=== PATIENT | male | born 1960 | race Caucasian/White ===

== ENCOUNTER 2022-11-13 01:33 | Inpatient (IN) ==
[2022-11-13] MEDS ORDERED: Rocuronium 50 mg VIAL 10 mg/ml 5 ml VIAL (50 mg) ONE ×3 (10:50→11:07)
[2022-11-13 10:55] LABS: Hematocrit 39 % (42-52); Hemoglobin 13.5 g/dL (14.0-18.0); Mean Corpuscular Hemoglobin 36 pg (27-31); Mean Corpuscular Hgb Conc 34 g/dL (31-36); Mean Corpuscular Volume 105 fL (80-94); Mean Platelet Volume 8.5 fL (7.4-10.4); Platelet Count 196 10^3/uL (150-450); Red Blood Count 3.77 10^6 /uL (4.18-5.48); Red Cell Distribution Width 14 % (10-15); White Blood Count 10.1 10^3/uL (3.5-10.8)
[2022-11-13 11:04] LABS: INR 1.14 (0.88-1.18)
[2022-11-13] MEDS ORDERED: Etomidate 40 mg/20 ml (2 MG/ML) 20 ml VIAL (40 mg) ONE (11:07)
[2022-11-13] MEDS ORDERED: Propofol 10 mg/ml 100 ML BTL 1,000 MG/100 ML BTL ONE (11:11)
[2022-11-13] MEDS ORDERED: Lorazepam PYXIS KEY PRN (11:27)
[2022-11-13] MEDS ORDERED: Lorazepam PYXIS KEY ONE (11:40)
[2022-11-13 11:41] LABS: ALT 339 U/L (7-52); AST 946 U/L (13-39); Albumin 3.1 g/dL (3.2-5.2); Albumin/Globulin Ratio 1.1 (1-3); Alkaline Phosphatase 65 U/L (35-149); Anion Gap 15 mmol/L (2-11); Blood Urea Nitrogen 58 mg/dL (6-24); CO2 Carbon Dioxide 19 mmol/L (22-32); Calcium 7.3 mg/dL (8.6-10.3); Chloride 104 mmol/L (101-111); Creatinine, Serum 3.73 mg/dL (0.67-1.17); Globulin 2.8 g/dL (2-4); Glucose 93 mg/dL (70-100); Phosphorus 6.8 mg/dL (2.5-5.0); Sodium 138 mmol/L (135-145); Total Protein 5.9 g/dL (6.4-8.9); eGFR CKD-EPI 17.6 (>60)
[2022-11-13] MEDS ORDERED: LORazepam 2 mg VIAL 1 ml ONE (11:41)
[2022-11-13] MEDS: LORazepam 2 mg VIAL 1 ml IV PUSH PRN (11:42)
[2022-11-13] MEDS: Midazolam 50 MG PREMIX IV DRIP 50 ML IV SCH (11:55)
[2022-11-13] MEDS ORDERED: Dexmedetomidine 1,000 MCG in NS 0.9% 250 ml 240 ML IV SCH (12:00)
[2022-11-13] MEDS ORDERED: NORMOSOL-R pH 7.4 1000 mL BAG 1,000 ML IV SCH (12:00)
[2022-11-13 12:06] LABS: Macrocytosis 1+; Polychromasia 1+
[2022-11-13 12:13] LABS: ABS Lymphocytes 0.4 10^3/ul (1.0-4.8); ABS Monocytes 1.6 10^3/ul (0-0.8); ABS Neutrophils 8.1 10^3/ul (1.5-7.7); Lymphocyte % 3.6 %
[2022-11-13 12:22] LABS: PCO2 Arterial 54 mmHg (35-45); PO2 Arterial 161 mmHg (80-100)
[2022-11-13 12:44] LABS: Urine Appearance Cloudy; Urine Bilirubin Negative (Negative); Urine Blood 3+ (Negative); Urine Color Yellow; Urine Glucose 1+(50 mg/dL) (Negative); Urine Ketones Negative (Negative); Urine Nitrite Negative (Negative); Urine Protein 2+(100 mg/dL) (Negative); Urine Specific Gravity 1.013 (1.002-1.030); Urine Urobilinogen Negative (Negative)
[2022-11-13 12:56] LABS: Urine Bacteria Absent (Absent); Urine Red Blood Cell 3+(>10/hpf) (Absent); Urine White Blood Cell 2+(11-20/hpf) (Absent)
[2022-11-13 13:03] LABS: Urine Benzodiazepine Screen Presumptive Positive (None Detect); Urine Buprenorphine Screen None Detected (None Detect); Urine Cannabinoids Screen None Detected (None Detect); Urine Fentanyl Screen None Detected (None Detect); Urine Hydrocodone Screen None Detected (None Detect); Urine Opiates Screen None Detected (None Detect)
[2022-11-13 13:29] LABS: C Reactive Protein 575.55 mg/L (<8.01)
[2022-11-13 13:53] LABS: Creatine Kinase 78486 U/L (10-223)
[2022-11-13] MEDS ORDERED: Thiamine 100 MG/ML 2 ml VIAL (200 mg) IM ONE (15:06)
[2022-11-13 16:06] LABS: Albumin 3.1 g/dL (3.2-5.2); Albumin/Globulin Ratio 1.2 (1-3); Calcium 7.3 mg/dL (8.6-10.3); Creatinine, Serum 4.22 mg/dL (0.67-1.17); Globulin 2.6 g/dL (2-4); Total Bilirubin 0.7 mg/dL (0.2-1.0); Total Protein 5.7 g/dL (6.4-8.9); eGFR CKD-EPI 15.2 (>60)
[2022-11-13 16:07] LABS: Potassium 5.9 mmol/L (3.5-5.0)
[2022-11-13] MEDS: Chlorhexidine MOUTHWASH 0.12% 15 ML UDC TOPICAL SCH ×3 (16:07→23:04)
[2022-11-13] MEDS: Pantoprazole VIAL 40 MG VIAL IV SCH (16:07)
[2022-11-13 16:18] LABS: Hepatitis B Surface Antigen Nonreactive (Nonreactive)
[2022-11-13 16:23] LABS: Hepatitis B Core IgM Nonreactive (Nonreactive)
[2022-11-13] MEDS ORDERED: Dextrose 50% Syringe 50 ml 25 GM/50 ML SYRINGE IV PUSH PRN (16:29)
[2022-11-13] MEDS ORDERED: Dextrose 50% Syringe 50 ml 25 GM/50 ML SYRINGE IV PUSH ONE (16:29)
[2022-11-13 16:35] LABS: Hepatitis B Surface Ab Not Immune (Immune); Hepatitis C Antibody Negative (Negative)
[2022-11-13] MEDS ORDERED: Sodium Polystyrene ORAL.SUSP 15 GM/60 ML BTL NG TUBE ONE (16:43)
[2022-11-13] MEDS ORDERED: Thiamine 100 MG/ML 2 ml VIAL 250 MG in NS 0.9% 100 ml BAG 100 ML IV SCH (17:00)
[2022-11-13 17:48] LABS: Salicylate < 2.50 mg/dL (<30)
[2022-11-13 18:32] LABS: Creatinine, Serum 4.52 mg/dL (0.67-1.17)
[2022-11-13 18:33] LABS: Potassium 5.3 mmol/L (3.5-5.0)
[2022-11-13] MEDS: Heparin 1,000 UNIT/ML 10 ml (10,000 UNITS) CATHLAB/DIALYSIS DIALYSIS PRN ×5 (19:50→23:51)
[2022-11-13] MEDS ORDERED: Midazolam 2 mg/2 ml VIAL 1 mg/ml 2 ml VIAL (2 mg) IV SLOW PU ONE (22:52)
[2022-11-13] MEDS ORDERED: Midazolam 2 mg/2 ml VIAL 1 mg/ml 2 ml VIAL (2 mg) ONE (22:56)
[2022-11-13] MEDS ORDERED: Norepinephrine 16MCG/ML BAGD5W 4,000 MCG/250 ML BAG IV SCH (23:00)
[2022-11-13] MEDS: Acetaminophen IV 1 GM/100ML 1,000 MG/100 ML BAG IV PRN (23:33)
[2022-11-14] MEDS ORDERED: Piperacillin/Tazobac ADVAN 3.375 GM in NS 0.9% 100 ml BAG 100 ML IV ONE (00:08)
[2022-11-14 00:21] LABS: PCO2 Arterial 30 mmHg (35-45); PO2 Arterial 385 mmHg (80-100)
[2022-11-14] MEDS: Midazolam 50 MG PREMIX IV DRIP 50 ML IV SCH ×4 (00:37→20:40)
[2022-11-14] MEDS ORDERED: Zosyn per Pharmacy NOTE FOLLOW UP SCH (01:00)
[2022-11-14] MEDS ORDERED: DOXYcycline 100 MG in NS 0.9% 250 ml 250 ML IVPB SCH (01:00)
[2022-11-14] MEDS: Chlorhexidine MOUTHWASH 0.12% 15 ML UDC TOPICAL SCH ×6 (01:00→20:26)
[2022-11-14 01:48] LABS: Hematocrit 38 % (42-52); Hemoglobin 13.1 g/dL (14.0-18.0); Mean Corpuscular Hemoglobin 36 pg (27-31); Mean Corpuscular Hgb Conc 34 g/dL (31-36); Mean Corpuscular Volume 105 fL (80-94); Mean Platelet Volume 8.5 fL (7.4-10.4); Platelet Count 198 10^3/uL (150-450); Red Blood Count 3.65 10^6 /uL (4.18-5.48); Red Cell Distribution Width 14 % (10-15); White Blood Count 14.3 10^3/uL (3.5-10.8)
[2022-11-14 02:41] LABS: Albumin/Globulin Ratio 1.2 (1-3); Calcium 7.5 mg/dL (8.6-10.3); Creatinine, Serum 3.13 mg/dL (0.67-1.17); Globulin 2.6 g/dL (2-4); Magnesium 2.2 mg/dL (1.9-2.7); Potassium 4.1 mmol/L (3.5-5.0); Total Bilirubin 1.5 mg/dL (0.2-1.0); Total Protein 5.6 g/dL (6.4-8.9); eGFR CKD-EPI 21.8 (>60)
[2022-11-14] MEDS ORDERED: ZOSYN 3.375 GM Q12H per EXTENDED INFUSION IV SCH (05:00)
[2022-11-14 05:10] LABS: Hematocrit 36 % (42-52); Hemoglobin 12.2 g/dL (14.0-18.0); Mean Corpuscular Hemoglobin 35 pg (27-31); Mean Corpuscular Hgb Conc 34 g/dL (31-36); Mean Corpuscular Volume 104 fL (80-94); Mean Platelet Volume 8.6 fL (7.4-10.4); Platelet Count 197 10^3/uL (150-450); Red Blood Count 3.47 10^6 /uL (4.18-5.48); Red Cell Distribution Width 14 % (10-15); White Blood Count 11.8 10^3/uL (3.5-10.8)
[2022-11-14 05:48] LABS: Albumin 2.9 g/dL (3.2-5.2); Albumin/Globulin Ratio 1.2 (1-3); Calcium 7.4 mg/dL (8.6-10.3); Creatinine, Serum 3.54 mg/dL (0.67-1.17); Globulin 2.4 g/dL (2-4); Potassium 4.3 mmol/L (3.5-5.0); Total Bilirubin 1.1 mg/dL (0.2-1.0); Total Protein 5.3 g/dL (6.4-8.9); eGFR CKD-EPI 18.8 (>60)
[2022-11-14 06:23] LABS: ABS Lymphocytes 0.8 10^3/ul (1.0-4.8); ABS Monocytes 1.9 10^3/ul (0-0.8); ABS Neutrophils 9.1 10^3/ul (1.5-7.7); Eosinophil % 0.1 %; Lymphocyte % 6.6 %
[2022-11-14] MEDS: Heparin 1,000 UNIT/ML 10 ml (10,000 UNITS) CATHLAB/DIALYSIS DIALYSIS PRN ×4 (07:50→11:15)
[2022-11-14] MEDS ORDERED: Vancomycin 1,500 MG in NS 0.9% 250 ml 250 ML IVPB ONE (08:00)
[2022-11-14] MEDS ORDERED: Vancomycin per Pharmacy 1 EA NOTE FOLLOW UP SCH (08:00)
[2022-11-14] MEDS: Thiamine 100 MG/ML 2 ml VIAL 500 MG in NS 0.9% 250 ml 250 ML IV SCH ×2 (11:16→18:30)
[2022-11-14] MEDS: ceFAZolin 1 GM in Dextrose 1 GM/50 ML BAG IVPB SCH (11:52)
[2022-11-14] MEDS: DOXYcycline 100 MG in NS 0.9% 250 ml 250 ML IVPB SCH (12:31)
[2022-11-14] MEDS: Pantoprazole VIAL 40 MG VIAL IV SCH (12:37)
[2022-11-14] MEDS: Multivitamins/Minerals TAB PO SCH (12:41)
[2022-11-14] MEDS ORDERED: Dexmedetomidine 1,000 MCG in NS 0.9% 250 ml 240 ML IV SCH (13:00)
[2022-11-14 13:15] LABS: Calcium 7.8 mg/dL (8.6-10.3); Creatinine, Serum 2.59 mg/dL (0.67-1.17); Potassium 3.8 mmol/L (3.5-5.0); eGFR CKD-EPI 27.3 (>60)
[2022-11-14] MEDS ORDERED: Midazolam 5 mg/5 ml VIAL 1 mg/ml 5 ml VIAL (5 mg) ONE (14:18)
[2022-11-14] MEDS ORDERED: Naloxone 0.4 mg VIAL 0.4 mg/ml 1 ml VIAL ONE (14:19)
[2022-11-14] MEDS ORDERED: Flumazenil 0.5 mg/5 ml 0.1 MG/ML 5 ml VIAL ONE (14:19)
[2022-11-14] MEDS ORDERED: fentaNYL 100 mcg/2 ml 50 MCG/ML VIAL ONE (14:19)
[2022-11-14] MEDS: Acetaminophen IV 1 GM/100ML 1,000 MG/100 ML BAG IV PRN (22:37)
[2022-11-15] MEDS: DOXYcycline 100 MG in NS 0.9% 250 ml 250 ML IVPB SCH ×2 (00:05→12:12)
[2022-11-15] MEDS: Thiamine 100 MG/ML 2 ml VIAL 500 MG in NS 0.9% 250 ml 250 ML IV SCH ×3 (00:09→16:53)
[2022-11-15] MEDS: Chlorhexidine MOUTHWASH 0.12% 15 ML UDC TOPICAL SCH ×6 (02:04→22:47)
[2022-11-15 04:24] LABS: Hematocrit 32 % (42-52); Hemoglobin 10.8 g/dL (14.0-18.0); Mean Corpuscular Hemoglobin 35 pg (27-31); Mean Corpuscular Hgb Conc 34 g/dL (31-36); Mean Corpuscular Volume 103 fL (80-94); Mean Platelet Volume 8.9 fL (7.4-10.4); Platelet Count 221 10^3/uL (150-450); Red Blood Count 3.08 10^6 /uL (4.18-5.48); Red Cell Distribution Width 14 % (10-15); White Blood Count 17.6 10^3/uL (3.5-10.8)
[2022-11-15 04:27] LABS: ABS Basophils 0.1 10^3/ul (0-0.2); ABS Lymphocytes 0.9 10^3/ul (1.0-4.8); ABS Monocytes 2.1 10^3/ul (0-0.8); ABS Neutrophils 14.7 10^3/ul (1.5-7.7); Eosinophil % 0.1 %; Lymphocyte % 4.8 %
[2022-11-15 04:29] LABS: INR 1.18 (0.88-1.18)
[2022-11-15 04:49] LABS: ALT 163 U/L (7-52); AST 151 U/L (13-39); Albumin 2.4 g/dL (3.2-5.2); Albumin/Globulin Ratio 0.9 (1-3); Alkaline Phosphatase 83 U/L (35-149); Anion Gap 13 mmol/L (2-11); Blood Urea Nitrogen 58 mg/dL (6-24); CO2 Carbon Dioxide 24 mmol/L (22-32); Calcium 7.3 mg/dL (8.6-10.3); Chloride 102 mmol/L (101-111); Creatinine, Serum 4.51 mg/dL (0.67-1.17); Globulin 2.6 g/dL (2-4); Glucose 105 mg/dL (70-100); Potassium 3.9 mmol/L (3.5-5.0); Sodium 139 mmol/L (135-145)
[2022-11-15] MEDS: Multivitamins/Minerals TAB PO SCH (08:12)
[2022-11-15] MEDS: ceFAZolin 1 GM in Dextrose 1 GM/50 ML BAG IVPB SCH (11:25)
[2022-11-15 12:02] LABS: Cholesterol 128 mg/dL; HDL Cholesterol 5.6 mg/dL; Triglycerides 427 mg/dL
[2022-11-15] MEDS: Pantoprazole VIAL 40 MG VIAL IV SCH (12:12)
[2022-11-15 12:19] LABS: LDL Cholesterol Direct 12 mg/dL
[2022-11-15] MEDS: Acetaminophen IV 1 GM/100ML 1,000 MG/100 ML BAG IV PRN (15:39)
[2022-11-15 16:33] LABS: Vitamin B12 > 1450 pg/mL (180-914)
[2022-11-16] MEDS: DOXYcycline 100 MG in NS 0.9% 250 ml 250 ML IVPB SCH ×2 (00:40→12:38)
[2022-11-16] MEDS: Pantoprazole VIAL 40 MG VIAL IV SCH ×2 (00:43→13:55)
[2022-11-16] MEDS: Chlorhexidine MOUTHWASH 0.12% 15 ML UDC TOPICAL SCH ×6 (00:43→20:36)
[2022-11-16] MEDS: Thiamine 100 MG/ML 2 ml VIAL 500 MG in NS 0.9% 250 ml 250 ML IV SCH ×3 (01:39→17:07)
[2022-11-16 04:56] LABS: Hematocrit 32 % (42-52); Hemoglobin 10.7 g/dL (14.0-18.0); Mean Corpuscular Hemoglobin 34 pg (27-31); Mean Corpuscular Hgb Conc 33 g/dL (31-36); Mean Corpuscular Volume 103 fL (80-94); Mean Platelet Volume 8.7 fL (7.4-10.4); Platelet Count 264 10^3/uL (150-450); Red Blood Count 3.13 10^6 /uL (4.18-5.48); Red Cell Distribution Width 14 % (10-15)
[2022-11-16 05:22] LABS: ABS Basophils 0.1 10^3/ul (0-0.2); ABS Lymphocytes 0.8 10^3/ul (1.0-4.8); ABS Monocytes 1.7 10^3/ul (0-0.8); ABS Neutrophils 19.3 10^3/ul (1.5-7.7); Eosinophil % 0.1 %; Lymphocyte % 3.8 %; Macrocytosis 1+
[2022-11-16 05:23] LABS: Polychromasia 1+
[2022-11-16 05:38] LABS: Calcium 7.7 mg/dL (8.6-10.3); Creatinine, Serum 6.63 mg/dL (0.67-1.17); Magnesium 2.3 mg/dL (1.9-2.7); eGFR CKD-EPI 8.8 (>60)
[2022-11-16 07:59] LABS: C Reactive Protein 320.63 mg/L (<8.01)
[2022-11-16] MEDS: Multivitamins/Minerals TAB PO SCH (08:38)
[2022-11-16] MEDS: ceFAZolin 1 GM in Dextrose 1 GM/50 ML BAG IVPB SCH (11:53)
[2022-11-16] MEDS: Heparin 5000 UNITS/ML 1 mL VIAL SUBCUT SCH (19:35)
[2022-11-16 22:23] LABS: PCO2 Arterial 21 mmHg (35-45); PO2 Arterial 75 mmHg (80-100)
[2022-11-16] MEDS ORDERED: Mineral Oil ENEMA 118 ML/BOTTLE BOTTLE PR ONE (22:24)
[2022-11-17] MEDS ORDERED: Metoprolol Tartrate 5 mg VIAL 5 ml VIAL (1 mg/ml) IV ONE (00:13)
[2022-11-17] MEDS: DOXYcycline 100 MG in NS 0.9% 250 ml 250 ML IVPB SCH (00:37)
[2022-11-17] MEDS: Chlorhexidine MOUTHWASH 0.12% 15 ML UDC TOPICAL SCH ×6 (00:37→21:55)
[2022-11-17] MEDS: Acetaminophen IV 1 GM/100ML 1,000 MG/100 ML BAG IV PRN ×2 (00:45→19:56)
[2022-11-17] MEDS: Pantoprazole VIAL 40 MG VIAL IV SCH ×2 (01:02→13:59)
[2022-11-17] MEDS: LORazepam 2 mg VIAL 1 ml IV PUSH PRN (01:02)
[2022-11-17] MEDS: Metoclopramide 5 MG/ML VIAL (10 mg) IV SLOW PU SCH ×4 (01:09→16:59)
[2022-11-17] MEDS: Thiamine 100 MG/ML 2 ml VIAL 500 MG in NS 0.9% 250 ml 250 ML IV SCH (01:10)
[2022-11-17 04:18] LABS: Hematocrit 30 % (42-52); Hemoglobin 10.2 g/dL (14.0-18.0); Mean Corpuscular Hemoglobin 34 pg (27-31); Mean Corpuscular Hgb Conc 34 g/dL (31-36); Mean Corpuscular Volume 100 fL (80-94); Mean Platelet Volume 8.6 fL (7.4-10.4); Platelet Count 304 10^3/uL (150-450); Red Blood Count 2.96 10^6 /uL (4.18-5.48); Red Cell Distribution Width 14 % (10-15); White Blood Count 22.2 10^3/uL (3.5-10.8)
[2022-11-17 04:37] LABS: ABS Lymphocytes 1.1 10^3/ul (1.0-4.8); ABS Monocytes 2.4 10^3/ul (0-0.8); ABS Neutrophils 18.6 10^3/ul (1.5-7.7); Eosinophil % 0.1 %; Nucleated Red Blood Cells % 0.1
[2022-11-17 04:53] LABS: Calcium 7.7 mg/dL (8.6-10.3); Creatinine, Serum 8.19 mg/dL (0.67-1.17); Magnesium 2.6 mg/dL (1.9-2.7); Potassium 3.9 mmol/L (3.5-5.0); eGFR CKD-EPI 6.9 (>60)
[2022-11-17] MEDS: Heparin 5000 UNITS/ML 1 mL VIAL SUBCUT SCH ×3 (04:54→21:55)
[2022-11-17] MEDS ORDERED: Norepinephrine 16MCG/ML BAGD5W 4,000 MCG/250 ML BAG IV SCH (09:00)
[2022-11-17] MEDS: Heparin 1,000 UNIT/ML 10 ml (10,000 UNITS) CATHLAB/DIALYSIS DIALYSIS PRN ×3 (09:14→11:10)
[2022-11-17] MEDS ORDERED: fentaNYL 100 mcg/2 ml 50 MCG/ML VIAL IV SLOW PU ONE (11:05)
[2022-11-17] MEDS: Lactulose 30 ml UDC NG TUBE SCH ×3 (11:59→21:55)
[2022-11-17] MEDS: ceFAZolin 1 GM in Dextrose 1 GM/50 ML BAG IVPB SCH (13:53)
[2022-11-17] MEDS: Multivitamins/Minerals TAB PO SCH (13:58)
[2022-11-18] MEDS: Pantoprazole VIAL 40 MG VIAL IV SCH ×2 (00:42→12:58)
[2022-11-18] MEDS: Metoclopramide 5 MG/ML VIAL (10 mg) IV SLOW PU SCH ×6 (00:42→23:38)
[2022-11-18] MEDS: Chlorhexidine MOUTHWASH 0.12% 15 ML UDC TOPICAL SCH ×6 (00:42→22:00)
[2022-11-18 06:22] LABS: Hematocrit 31 % (42-52); Hemoglobin 10.5 g/dL (14.0-18.0); Mean Corpuscular Hemoglobin 34 pg (27-31); Mean Corpuscular Hgb Conc 33 g/dL (31-36); Mean Corpuscular Volume 101 fL (80-94); Mean Platelet Volume 9.1 fL (7.4-10.4); Platelet Count 386 10^3/uL (150-450); Red Blood Count 3.12 10^6 /uL (4.18-5.48); Red Cell Distribution Width 14 % (10-15); White Blood Count 22.6 10^3/uL (3.5-10.8)
[2022-11-18] MEDS: Heparin 5000 UNITS/ML 1 mL VIAL SUBCUT SCH ×3 (06:41→21:59)
[2022-11-18 06:48] LABS: ABS Basophils 0.3 10^3/ul (0-0.2); ABS Eosinophils 0.4 10^3/ul (0-0.6); ABS Lymphocytes 1.1 10^3/ul (1.0-4.8); ABS Monocytes 2.6 10^3/ul (0-0.8); ABS Neutrophils 18.3 10^3/ul (1.5-7.7); Eosinophil % 1.7 %
[2022-11-18 07:03] LABS: Albumin 2.5 g/dL (3.2-5.2); Albumin/Globulin Ratio 0.9 (1-3); Creatinine, Serum 7.96 mg/dL (0.67-1.17); Globulin 2.9 g/dL (2-4); Magnesium 2.6 mg/dL (1.9-2.7); Total Bilirubin 0.5 mg/dL (0.2-1.0); Total Protein 5.4 g/dL (6.4-8.9); eGFR CKD-EPI 7.1 (>60)
[2022-11-18 07:05] LABS: Macrocytosis 1+
[2022-11-18] MEDS: Multivitamins/Minerals TAB PO SCH (09:10)
[2022-11-18] MEDS: Lactulose 30 ml UDC NG TUBE SCH (09:10)
[2022-11-18 11:19] LABS: INR 1.9 (0.88-1.18)
[2022-11-18] MEDS: ceFAZolin 1 GM in Dextrose 1 GM/50 ML BAG IVPB SCH (11:22)
[2022-11-18] MEDS: Thiamine 100 MG/ML 2 ml VIAL 100 MG in NS 0.9% 50 ML 50 ML IV SCH (12:01)
[2022-11-18] MEDS: Heparin 1,000 UNIT/ML 10 ml (10,000 UNITS) CATHLAB/DIALYSIS DIALYSIS PRN ×3 (14:15→17:31)
[2022-11-18] MEDS ORDERED: Albumin Human 5% 25 GM/500 ML BTL IV ONE (16:00)
[2022-11-18 16:44] LABS: Hematocrit 34 % (42-52); Hemoglobin 11.9 g/dL (14.0-18.0); Mean Corpuscular Hemoglobin 35 pg (27-31); Mean Corpuscular Hgb Conc 35 g/dL (31-36); Mean Corpuscular Volume 102 fL (80-94); Mean Platelet Volume 8.6 fL (7.4-10.4); Platelet Count 448 10^3/uL (150-450); Red Blood Count 3.38 10^6 /uL (4.18-5.48); Red Cell Distribution Width 14 % (10-15); White Blood Count 35.2 10^3/uL (3.5-10.8)
[2022-11-18 16:49] LABS: ABS Basophils 0.2 10^3/ul (0-0.2); ABS Eosinophils 0.1 10^3/ul (0-0.6); ABS Lymphocytes 1.5 10^3/ul (1.0-4.8); ABS Monocytes 1.9 10^3/ul (0-0.8); ABS Neutrophils 31.5 10^3/ul (1.5-7.7); Eosinophil % 0.2 %; Lymphocyte % 4.3 %
[2022-11-18 17:23] LABS: Albumin 3.3 g/dL (3.2-5.2)
[2022-11-18 17:29] LABS: Globulin 3.4 g/dL (2-4); Total Protein 6.7 g/dL (6.4-8.9)
[2022-11-18 17:30] LABS: Calcium 8.3 mg/dL (8.6-10.3); Creatinine, Serum 5.27 mg/dL (0.67-1.17); Potassium 3.4 mmol/L (3.5-5.0); Total Bilirubin 0.6 mg/dL (0.2-1.0); eGFR CKD-EPI 11.7 (>60)
[2022-11-18] MEDS ORDERED: Zosyn per Pharmacy NOTE FOLLOW UP SCH (19:00)
[2022-11-18] MEDS ORDERED: Piperacillin/Tazobac ADVAN 3.375 GM in NS 0.9% 100 ml BAG 100 ML IV ONE (19:30)
[2022-11-18] MEDS: Norepinephrine 16MCG/ML BAGD5W 4,000 MCG/250 ML BAG IV SCH (20:56)
[2022-11-18] MEDS ORDERED: Lactulose 30 ml UDC NG TUBE SCH (21:00)
[2022-11-18] MEDS: ZOSYN 3.375 GM Q12H per EXTENDED INFUSION IV SCH (23:41)
[2022-11-19] MEDS: Pantoprazole VIAL 40 MG VIAL IV SCH ×2 (00:41→15:13)
[2022-11-19] MEDS: LORazepam 2 mg VIAL 1 ml IV PUSH PRN (00:41)
[2022-11-19] MEDS: Chlorhexidine MOUTHWASH 0.12% 15 ML UDC TOPICAL SCH ×6 (00:43→22:56)
[2022-11-19 04:41] LABS: Hematocrit 28 % (42-52); Hemoglobin 9.4 g/dL (14.0-18.0); Mean Corpuscular Hemoglobin 34 pg (27-31); Mean Corpuscular Hgb Conc 34 g/dL (31-36); Mean Corpuscular Volume 101 fL (80-94); Mean Platelet Volume 9.4 fL (7.4-10.4); Platelet Count 430 10^3/uL (150-450); Red Blood Count 2.75 10^6 /uL (4.18-5.48); Red Cell Distribution Width 14 % (10-15); White Blood Count 26.1 10^3/uL (3.5-10.8)
[2022-11-19 05:10] LABS: Albumin 2.6 g/dL (3.2-5.2); Albumin/Globulin Ratio 0.9 (1-3); Calcium 7.7 mg/dL (8.6-10.3); Creatinine, Serum 7.43 mg/dL (0.67-1.17); Globulin 2.8 g/dL (2-4); Magnesium 2.3 mg/dL (1.9-2.7); Total Bilirubin 0.6 mg/dL (0.2-1.0); Total Protein 5.4 g/dL (6.4-8.9); eGFR CKD-EPI 7.7 (>60)
[2022-11-19] MEDS: Metoclopramide 5 MG/ML VIAL (10 mg) IV SLOW PU SCH ×3 (05:48→22:57)
[2022-11-19] MEDS: Heparin 5000 UNITS/ML 1 mL VIAL SUBCUT SCH ×3 (05:49→22:56)
[2022-11-19 08:05] LABS: ABS Basophils 0.1 10^3/ul (0-0.2); ABS Eosinophils 0.2 10^3/ul (0-0.6); ABS Lymphocytes 1.5 10^3/ul (1.0-4.8); ABS Monocytes 2.8 10^3/ul (0-0.8); ABS Neutrophils 21.5 10^3/ul (1.5-7.7); Anisocytosis 1+; Eosinophil % 0.8 %; Lymphocyte % 5.9 %; Polychromasia 1+
[2022-11-19] MEDS: Multivitamins ADULT w/MIN LIQ 15 ML UDC PO SCH (08:41)
[2022-11-19] MEDS: Simethicone SUSP ORALSYR 66.66 MG/ML NG TUBE PRN (08:42)
[2022-11-19 08:46] LABS: INR 2.16 (0.88-1.18)
[2022-11-19] MEDS: Heparin 1,000 UNIT/ML 10 ml (10,000 UNITS) CATHLAB/DIALYSIS DIALYSIS PRN ×5 (10:31→15:16)
[2022-11-19] MEDS: Acetaminophen IV 1 GM/100ML 1,000 MG/100 ML BAG IV PRN ×2 (13:09→22:56)
[2022-11-19] MEDS: ceFAZolin 1 GM in Dextrose 1 GM/50 ML BAG IVPB SCH (13:41)
[2022-11-19] MEDS: ZOSYN 3.375 GM Q12H per EXTENDED INFUSION IV SCH ×2 (15:11→23:42)
[2022-11-19] MEDS ORDERED: Naloxone 0.4 mg VIAL 0.4 mg/ml 1 ml VIAL ONE (15:20)
[2022-11-19] MEDS ORDERED: Midazolam 5 mg/5 ml VIAL 1 mg/ml 5 ml VIAL (5 mg) ONE (15:20)
[2022-11-19] MEDS ORDERED: fentaNYL 100 mcg/2 ml 50 MCG/ML VIAL ONE (15:20)
[2022-11-19] MEDS ORDERED: Flumazenil 0.5 mg/5 ml 0.1 MG/ML 5 ml VIAL ONE (15:20)
[2022-11-19] MEDS: Thiamine 100 MG/ML 2 ml VIAL 100 MG in NS 0.9% 50 ML 50 ML IV SCH (15:41)
[2022-11-19] MEDS ORDERED: fentaNYL 100 mcg/2 ml 50 MCG/ML VIAL IV SLOW PU ONE (15:54)
[2022-11-19] MEDS ORDERED: Midazolam 10 mg/10 ml VIAL 1 mg/ml 10 ml VIAL (10 mg) IV SLOW PU ONE (15:54)
[2022-11-19 21:14] LABS: Hematocrit 29 % (42-52); Hemoglobin 9.6 g/dL (14.0-18.0); Mean Corpuscular Hemoglobin 34 pg (27-31); Mean Corpuscular Hgb Conc 34 g/dL (31-36); Mean Corpuscular Volume 100 fL (80-94); Mean Platelet Volume 8.9 fL (7.4-10.4); Platelet Count 469 10^3/uL (150-450); Red Blood Count 2.85 10^6 /uL (4.18-5.48); Red Cell Distribution Width 14 % (10-15)
[2022-11-19 21:51] LABS: ABS Basophils 0.1 10^3/ul (0-0.2); ABS Eosinophils 0.1 10^3/ul (0-0.6); ABS Lymphocytes 1.5 10^3/ul (1.0-4.8); ABS Monocytes 2.7 10^3/ul (0-0.8); ABS Neutrophils 26.6 10^3/ul (1.5-7.7); Eosinophil % 0.4 %; Lymphocyte % 4.9 %
[2022-11-20] MEDS: Pantoprazole VIAL 40 MG VIAL IV SCH ×2 (01:23→13:16)
[2022-11-20] MEDS: Chlorhexidine MOUTHWASH 0.12% 15 ML UDC TOPICAL SCH ×6 (01:23→21:39)
[2022-11-20] MEDS: Metoclopramide 5 MG/ML VIAL (10 mg) IV SLOW PU SCH ×5 (01:23→23:36)
[2022-11-20] MEDS: Heparin 5000 UNITS/ML 1 mL VIAL SUBCUT SCH ×3 (05:54→21:40)
[2022-11-20 06:14] LABS: Albumin 2.6 g/dL (3.2-5.2); Albumin/Globulin Ratio 0.8 (1-3); Calcium 7.6 mg/dL (8.6-10.3); Creatinine, Serum 5.7 mg/dL (0.67-1.17); Globulin 3.2 g/dL (2-4); Magnesium 2.1 mg/dL (1.9-2.7); Total Bilirubin 0.6 mg/dL (0.2-1.0); Total Protein 5.8 g/dL (6.4-8.9); eGFR CKD-EPI 10.6 (>60)
[2022-11-20 06:47] LABS: Hematocrit 27 % (42-52); Mean Corpuscular Hemoglobin 34 pg (27-31); Mean Corpuscular Hgb Conc 34 g/dL (31-36); Mean Corpuscular Volume 100 fL (80-94); Mean Platelet Volume 9.4 fL (7.4-10.4); Platelet Count 478 10^3/uL (150-450); Red Blood Count 2.69 10^6 /uL (4.18-5.48); Red Cell Distribution Width 14 % (10-15)
[2022-11-20] MEDS: Acetaminophen IV 1 GM/100ML 1,000 MG/100 ML BAG IV PRN ×2 (07:02→13:20)
[2022-11-20 07:53] LABS: Anisocytosis 1+; Hypochromasia 1+; Macrocytosis 1+; Polychromasia 1+
[2022-11-20 07:54] LABS: Basophilic Stippling 1+; Platelet Morphology Large; Spherocytes 1+
[2022-11-20 07:56] LABS: ABS Eosinophils 0.2 10^3/ul (0-0.6); ABS Lymphocytes 1.2 10^3/ul (1.0-4.8); ABS Monocytes 2.5 10^3/ul (0-0.8); ABS Neutrophils 24.1 10^3/ul (1.5-7.7); Eosinophil % 0.6 %; Lymphocyte % 4.2 %
[2022-11-20] MEDS: Multivitamins ADULT w/MIN LIQ 15 ML UDC PO SCH (08:55)
[2022-11-20 09:10] LABS: INR 2.01 (0.88-1.18)
[2022-11-20] MEDS: ZOSYN 3.375 GM Q12H per EXTENDED INFUSION IV SCH (12:59)
[2022-11-20] MEDS: Thiamine 100 MG/ML 2 ml VIAL 100 MG in NS 0.9% 50 ML 50 ML IV SCH (13:02)
[2022-11-20 14:01] LABS: Urine Appearance Cloudy; Urine Bilirubin Negative (Negative); Urine Blood 2+ (Negative); Urine Color Yellow; Urine Glucose Negative (Negative); Urine Ketones Negative (Negative); Urine Nitrite Negative (Negative); Urine Protein 2+(100 mg/dL) (Negative); Urine Specific Gravity 1.016 (1.002-1.030); Urine Urobilinogen Negative (Negative)
[2022-11-20 14:04] LABS: Urine Bacteria 1+ (Absent); Urine Red Blood Cell 3+(>10/hpf) (Absent); Urine Sperm Present (Absent); Urine White Blood Cell 3+(>20/hpf) (Absent); Urine Yeast Present (Absent)
[2022-11-20] MEDS ORDERED: Heparin 2 UNITS/ML 1000 mls 1,000 ML IV ONE (15:04)
[2022-11-20] MEDS ORDERED: Lidocaine 1% MPF 5 ML VIAL ONE (15:04)
[2022-11-20] MEDS ORDERED: fentaNYL 100 mcg/2 ml 50 MCG/ML VIAL ONE (15:11)
[2022-11-20] MEDS ORDERED: Midazolam 5 mg/5 ml VIAL 1 mg/ml 5 ml VIAL (5 mg) ONE (15:11)
[2022-11-20] MEDS ORDERED: Heparin 1,000 UNIT/ML 10 ml (10,000 UNITS) CATHLAB/DIALYSIS ONE (15:31)
[2022-11-20] MEDS: ceFAZolin 1 GM in Dextrose 1 GM/50 ML BAG IVPB SCH (18:27)
[2022-11-20] MEDS: Simethicone SUSP ORALSYR 66.66 MG/ML NG TUBE PRN (23:36)
[2022-11-20] MEDS ORDERED: Midazolam 2 mg/2 ml VIAL 1 mg/ml 2 ml VIAL (2 mg) IV SLOW PU ONE (23:44)
[2022-11-21] MEDS: Pantoprazole VIAL 40 MG VIAL IV SCH ×2 (00:03→12:20)
[2022-11-21] MEDS: Acetaminophen IV 1 GM/100ML 1,000 MG/100 ML BAG IV PRN ×3 (00:16→23:30)
[2022-11-21] MEDS: Chlorhexidine MOUTHWASH 0.12% 15 ML UDC TOPICAL SCH ×6 (00:47→23:30)
[2022-11-21 04:43] LABS: Hematocrit 25 % (42-52); Hemoglobin 8.3 g/dL (14.0-18.0); Mean Corpuscular Hemoglobin 33 pg (27-31); Mean Corpuscular Hgb Conc 33 g/dL (31-36); Mean Corpuscular Volume 100 fL (80-94); Platelet Count 514 10^3/uL (150-450); Red Blood Count 2.53 10^6 /uL (4.18-5.48); Red Cell Distribution Width 14 % (10-15); White Blood Count 26.5 10^3/uL (3.5-10.8)
[2022-11-21 05:31] LABS: Albumin 2.4 g/dL (3.2-5.2); Albumin/Globulin Ratio 0.8 (1-3); C Reactive Protein 288.96 mg/L (<8.01); Calcium 6.9 mg/dL (8.6-10.3); Creatinine, Serum 7.44 mg/dL (0.67-1.17); Globulin 3.1 g/dL (2-4); Magnesium 2.1 mg/dL (1.9-2.7); Total Bilirubin 0.5 mg/dL (0.2-1.0); Total Protein 5.5 g/dL (6.4-8.9); eGFR CKD-EPI 7.7 (>60)
[2022-11-21] MEDS: Metoclopramide 5 MG/ML VIAL (10 mg) IV SLOW PU SCH ×3 (05:31→16:08)
[2022-11-21] MEDS: Heparin 5000 UNITS/ML 1 mL VIAL SUBCUT SCH ×3 (05:31→23:30)
[2022-11-21] MEDS: Multivitamins ADULT w/MIN LIQ 15 ML UDC PO SCH (07:59)
[2022-11-21 08:11] LABS: ABS Eosinophils 0.2 10^3/ul (0-0.6); ABS Lymphocytes 0.9 10^3/ul (1.0-4.8); ABS Monocytes 1.6 10^3/ul (0-0.8); ABS Neutrophils 23.8 10^3/ul (1.5-7.7); Eosinophil % 0.9 %; Lymphocyte % 3.5 %
[2022-11-21] MEDS ORDERED: Midazolam 2 mg/2 ml VIAL 1 mg/ml 2 ml VIAL (2 mg) IV SLOW PU ONE (08:17)
[2022-11-21] MEDS: Heparin 1,000 UNIT/ML 10 ml (10,000 UNITS) CATHLAB/DIALYSIS DIALYSIS PRN ×5 (09:16→13:39)
[2022-11-21] MEDS: Norepinephrine 16MCG/ML BAGD5W 4,000 MCG/250 ML BAG IV SCH (11:40)
[2022-11-21] MEDS: Thiamine 100 MG/ML 2 ml VIAL 100 MG in NS 0.9% 50 ML 50 ML IV SCH (13:41)
[2022-11-21] MEDS: ceFAZolin 1 GM in Dextrose 1 GM/50 ML BAG IVPB SCH (16:08)
[2022-11-21 19:50] LABS: Hematocrit 27 % (42-52); Hemoglobin 8.8 g/dL (14.0-18.0)
[2022-11-21 19:53] LABS: Urine Appearance Cloudy; Urine Bilirubin Negative (Negative); Urine Blood 2+ (Negative); Urine Color Yellow; Urine Glucose Negative (Negative); Urine Ketones Negative (Negative); Urine Nitrite Negative (Negative); Urine Protein 2+(100 mg/dL) (Negative); Urine Specific Gravity 1.015 (1.002-1.030); Urine Urobilinogen Negative (Negative)
[2022-11-21 20:03] LABS: Urine Bacteria 1+ (Absent); Urine Red Blood Cell 3+(>10/hpf) (Absent); Urine Squamous Epithelial Cell Present (Absent); Urine White Blood Cell 1+(6-10/hpf) (Absent)
[2022-11-22] MEDS: Pantoprazole VIAL 40 MG VIAL IV SCH ×2 (02:02→12:48)
[2022-11-22] MEDS: Chlorhexidine MOUTHWASH 0.12% 15 ML UDC TOPICAL SCH ×6 (02:02→22:24)
[2022-11-22 05:06] LABS: Hematocrit 26 % (42-52); Hemoglobin 8.7 g/dL (14.0-18.0); Mean Corpuscular Hemoglobin 35 pg (27-31); Mean Corpuscular Hgb Conc 34 g/dL (31-36); Mean Corpuscular Volume 102 fL (80-94); Mean Platelet Volume 9.3 fL (7.4-10.4); Platelet Count 528 10^3/uL (150-450); Red Blood Count 2.52 10^6 /uL (4.18-5.48); Red Cell Distribution Width 14 % (10-15); White Blood Count 23.6 10^3/uL (3.5-10.8)
[2022-11-22 05:08] LABS: ABS Eosinophils 0.3 10^3/ul (0-0.6); ABS Lymphocytes 1.2 10^3/ul (1.0-4.8); ABS Monocytes 1.6 10^3/ul (0-0.8); ABS Neutrophils 20.5 10^3/ul (1.5-7.7); Eosinophil % 1.1 %; Lymphocyte % 5.2 %
[2022-11-22 05:41] LABS: Calcium 7.3 mg/dL (8.6-10.3); Creatinine, Serum 5.14 mg/dL (0.67-1.17); Magnesium 1.8 mg/dL (1.9-2.7); Phosphorus 7.5 mg/dL (2.5-5.0); Potassium 3.6 mmol/L (3.5-5.0)
[2022-11-22] MEDS: Metoclopramide 5 MG/ML VIAL (10 mg) IV SLOW PU SCH ×2 (05:45)
[2022-11-22] MEDS: Heparin 5000 UNITS/ML 1 mL VIAL SUBCUT SCH ×3 (06:06→22:24)
[2022-11-22] MEDS: Multivitamins ADULT w/MIN LIQ 15 ML UDC PO SCH (08:18)
[2022-11-22] MEDS ORDERED: cefTRIAXone 1 gm/50 mL D5W 1 GM/50 ML BAG IV SCH (10:30)
[2022-11-22] MEDS: Thiamine 100 MG/ML 2 ml VIAL 100 MG in NS 0.9% 50 ML 50 ML IV SCH (10:38)
[2022-11-22] MEDS: ceFAZolin 1 GM in Dextrose 1 GM/50 ML BAG IVPB SCH (10:45)
[2022-11-22] MEDS: Acetylcysteine INHALATION SOL 200 MG/ML NEB.SOLN 10 ML INH SCH ×3 (10:53→19:26)
[2022-11-22] MEDS: Albuterol 2.5mg/3 ml (0.083%) NEB.SOLN INH PRN ×2 (10:53→19:25)
[2022-11-22] MEDS ORDERED: Aztreonam 1 GM in NS 0.9% 50 ML 50 ML IV SCH (11:00)
[2022-11-22] MEDS: Dexmedetomidine 1,000 MCG in NS 0.9% 250 ml 240 ML IV SCH (11:54)
[2022-11-22] MEDS: Phytonadione Oral Solution 5 MG/25 ML UDC PO SCH (11:59)
[2022-11-22] MEDS: Aztreonam 1 GM in NS 0.9% 50 ML 50 ML IV SCH (12:20)
[2022-11-22] MEDS ORDERED: Metoprolol Tartrate 5 mg VIAL 5 ml VIAL (1 mg/ml) IV PRN ×3 (12:38→18:41)
[2022-11-22] MEDS: Acetaminophen IV 1 GM/100ML 1,000 MG/100 ML BAG IV PRN ×2 (12:51→23:39)
[2022-11-22] MEDS ORDERED: Metoprolol Tartrate 5 mg VIAL 5 ml VIAL (1 mg/ml) IV ONE (12:56)
[2022-11-22] MEDS ORDERED: Albumin Human 5% 12.5 GM/250 ML BTL IV ONE (18:40)
[2022-11-23] MEDS: Albuterol 2.5mg/3 ml (0.083%) NEB.SOLN INH PRN ×3 (00:30→13:30)
[2022-11-23] MEDS: Acetylcysteine INHALATION SOL 200 MG/ML NEB.SOLN 10 ML INH SCH ×4 (00:30→21:35)
[2022-11-23] MEDS: Chlorhexidine MOUTHWASH 0.12% 15 ML UDC TOPICAL SCH ×4 (01:05→12:42)
[2022-11-23] MEDS: Pantoprazole VIAL 40 MG VIAL IV SCH ×2 (01:06→12:55)
[2022-11-23 05:30] LABS: Hematocrit 24 % (42-52); Hemoglobin 7.8 g/dL (14.0-18.0); Mean Corpuscular Hemoglobin 33 pg (27-31); Mean Corpuscular Hgb Conc 32 g/dL (31-36); Mean Corpuscular Volume 102 fL (80-94); Mean Platelet Volume 9.2 fL (7.4-10.4); Platelet Count 550 10^3/uL (150-450); Red Blood Count 2.39 10^6 /uL (4.18-5.48); Red Cell Distribution Width 14 % (10-15); White Blood Count 24.9 10^3/uL (3.5-10.8)
[2022-11-23 05:45] LABS: ABS Basophils 0.1 10^3/ul (0-0.2); ABS Eosinophils 0.1 10^3/ul (0-0.6); ABS Monocytes 1.7 10^3/ul (0-0.8); Eosinophil % 0.3 %
[2022-11-23] MEDS: Heparin 5000 UNITS/ML 1 mL VIAL SUBCUT SCH ×3 (06:06→22:01)
[2022-11-23 06:16] LABS: ALT 9 U/L (7-52); AST 39 U/L (13-39); Albumin 2.4 g/dL (3.2-5.2); Albumin/Globulin Ratio 0.7 (1-3); Alkaline Phosphatase 174 U/L (35-149); Anion Gap 19 mmol/L (2-11); Blood Urea Nitrogen 108 mg/dL (6-24); CO2 Carbon Dioxide 20 mmol/L (22-32); Chloride 96 mmol/L (101-111); Globulin 3.3 g/dL (2-4); Glucose 147 mg/dL (70-100); Sodium 135 mmol/L (135-145); Total Protein 5.7 g/dL (6.4-8.9)
[2022-11-23] MEDS: ceFAZolin 1 GM in Dextrose 1 GM/50 ML BAG IVPB SCH (07:57)
[2022-11-23] MEDS: Multivitamins ADULT w/MIN LIQ 15 ML UDC PO SCH (07:57)
[2022-11-23 08:23] LABS: INR 1.1 (0.88-1.18)
[2022-11-23] MEDS: Aztreonam 1 GM in NS 0.9% 50 ML 50 ML IV SCH (08:29)
[2022-11-23] MEDS: Dexmedetomidine 1,000 MCG in NS 0.9% 250 ml 240 ML IV SCH (08:51)
[2022-11-23] MEDS: Phytonadione Oral Solution 5 MG/25 ML UDC PO SCH (08:51)
[2022-11-23] MEDS ORDERED: Aztreonam 1 GM in NS 0.9% 50 ML 50 ML IV SCH (09:00)
[2022-11-23 09:43] LABS: Hematocrit 23 % (42-52); Hemoglobin 7.6 g/dL (14.0-18.0)
[2022-11-23] MEDS: Thiamine 100 MG/ML 2 ml VIAL 100 MG in NS 0.9% 50 ML 50 ML IV SCH (10:22)
[2022-11-23] MEDS: Acetaminophen IV 1 GM/100ML 1,000 MG/100 ML BAG IV PRN (13:33)
[2022-11-23 14:00] LABS: Hematocrit 23 % (42-52); Hemoglobin 7.8 g/dL (14.0-18.0); Mean Corpuscular Hemoglobin 33 pg (27-31); Mean Corpuscular Hgb Conc 33 g/dL (31-36); Mean Corpuscular Volume 100 fL (80-94); Mean Platelet Volume 8.4 fL (7.4-10.4); Platelet Count 553 10^3/uL (150-450); Red Blood Count 2.35 10^6 /uL (4.18-5.48); Red Cell Distribution Width 14 % (10-15); White Blood Count 28.4 10^3/uL (3.5-10.8)
[2022-11-23 14:05] LABS: ABS Basophils 0.2 10^3/ul (0-0.2); ABS Eosinophils 0.1 10^3/ul (0-0.6); ABS Monocytes 1.8 10^3/ul (0-0.8); ABS Neutrophils 25.3 10^3/ul (1.5-7.7); Eosinophil % 0.2 %; Lymphocyte % 3.6 %
[2022-11-23 15:12] LABS: % Iron Saturation 13 % (15-55); .Transferrin 112 mg/dL (203-362); Iron < 20 ug/dL (50-212); Total Iron Binding Capacity 157 mcg/dL (250-450); Unsaturated Iron Binding 137 ug/dL
[2022-11-23 15:33] LABS: Ferritin 634.2 ng/mL (24-336)
[2022-11-23 16:01] LABS: Folate > 20.00 ng/mL (5.90-24.80)
[2022-11-23] MEDS ORDERED: NS 0.9% 1000 ml BAG 200 ML IV PRN ×2 (19:46→19:55)
[2022-11-23] MEDS ORDERED: NS 0.9% 1000 ml BAG 100 ML IV PRN ×2 (19:46→19:55)
[2022-11-23] MEDS: Acetylcysteine INH SOL (RT) 200 MG/ML 4 ML VIAL INH SCH (19:48)
[2022-11-24] MEDS: Pantoprazole VIAL 40 MG VIAL IV SCH ×2 (01:22→12:11)
[2022-11-24] MEDS: Acetylcysteine INH SOL (RT) 200 MG/ML 4 ML VIAL INH SCH ×2 (01:27→07:36)
[2022-11-24] MEDS: Albuterol 2.5mg/3 ml (0.083%) NEB.SOLN INH PRN ×2 (01:27→07:35)
[2022-11-24 04:52] LABS: Hematocrit 24 % (42-52); Hemoglobin 7.9 g/dL (14.0-18.0); Mean Corpuscular Hemoglobin 33 pg (27-31); Mean Corpuscular Hgb Conc 33 g/dL (31-36); Mean Corpuscular Volume 102 fL (80-94); Mean Platelet Volume 8.8 fL (7.4-10.4); Platelet Count 600 10^3/uL (150-450); Red Blood Count 2.38 10^6 /uL (4.18-5.48); Red Cell Distribution Width 13 % (10-15); White Blood Count 27.9 10^3/uL (3.5-10.8)
[2022-11-24 04:58] LABS: INR 1.2 (0.88-1.18)
[2022-11-24 05:25] LABS: ALT 6 U/L (7-52); AST 40 U/L (13-39); Albumin 2.4 g/dL (3.2-5.2); Albumin/Globulin Ratio 0.6 (1-3); Alkaline Phosphatase 160 U/L (35-149); Anion Gap 22 mmol/L (2-11); CO2 Carbon Dioxide 18 mmol/L (22-32); Calcium 7.2 mg/dL (8.6-10.3); Chloride 97 mmol/L (101-111); Creatinine, Serum 8.09 mg/dL (0.67-1.17); Glucose 82 mg/dL (70-100); Magnesium 2.1 mg/dL (1.9-2.7); Potassium 4.4 mmol/L (3.5-5.0); Sodium 137 mmol/L (135-145); Total Protein 6.4 g/dL (6.4-8.9)
[2022-11-24] MEDS: Heparin 5000 UNITS/ML 1 mL VIAL SUBCUT SCH ×3 (06:41→22:35)
[2022-11-24] MEDS ORDERED: Albumin Human 25% 25 GM/100 ML BTL IV PRN ×2 (07:00)
[2022-11-24 07:01] LABS: ABS Basophils 0.1 10^3/ul (0-0.2); ABS Eosinophils 0.1 10^3/ul (0-0.6); ABS Lymphocytes 1.1 10^3/ul (1.0-4.8); ABS Monocytes 1.7 10^3/ul (0-0.8); ABS Neutrophils 24.9 10^3/ul (1.5-7.7); Eosinophil % 0.3 %; Lymphocyte % 3.8 %
[2022-11-24] MEDS: Heparin 1,000 UNIT/ML 10 ml (10,000 UNITS) CATHLAB/DIALYSIS DIALYSIS PRN ×8 (07:27→15:07)
[2022-11-24] MEDS ORDERED: Succinylcholine 200 mg VIAL 20 mg/ml 10 ml VIAL (200 mg) ONE ×2 (08:48→08:59)
[2022-11-24] MEDS ORDERED: Rocuronium 50 mg VIAL 10 mg/ml 5 ml VIAL (50 mg) ONE (08:49)
[2022-11-24] MEDS ORDERED: Norepinephrine 16MCG/ML BAGD5W 4,000 MCG/250 ML BAG IV ONE (08:49)
[2022-11-24] MEDS ORDERED: Etomidate 40 mg/20 ml (2 MG/ML) 20 ml VIAL (40 mg) ONE (08:59)
[2022-11-24] MEDS ORDERED: Norepinephrine 16MCG/ML BAGD5W 4,000 MCG/250 ML BAG IV SCH (09:00)
[2022-11-24] MEDS ORDERED: Propofol 10 mg/ml 100 ML BTL 1,000 MG/100 ML BTL ONE (09:05)
[2022-11-24] MEDS: Dexmedetomidine 1,000 MCG in NS 0.9% 250 ml 240 ML IV SCH (10:07)
[2022-11-24] MEDS ORDERED: Acetylcysteine INH SOL (RT) 200 MG/ML 4 ML VIAL INH PRN (10:11)
[2022-11-24] MEDS ORDERED: methylPREDNISolone SOD SUCC 125 mg 2 ML VIAL IV ONE (10:49)
[2022-11-24 12:00] LABS: PCO2 Arterial 32 mmHg (35-45); PO2 Arterial 179 mmHg (80-100)
[2022-11-24] MEDS: Multivitamins ADULT w/MIN LIQ 15 ML UDC PO SCH (12:11)
[2022-11-24] MEDS: Thiamine 100 MG/ML 2 ml VIAL 100 MG in NS 0.9% 50 ML 50 ML IV SCH (12:11)
[2022-11-24 12:39] LABS: High Sensitivity Troponin 1 Hr 82 pg/mL (<20)
[2022-11-24] MEDS: Propofol 10 mg/ml 100 ML BTL 1,000 MG/100 ML BTL IV SCH ×2 (14:09→22:28)
[2022-11-24] MEDS: ceFAZolin 1 GM in Dextrose 1 GM/50 ML BAG IVPB SCH (15:25)
[2022-11-24] MEDS: Aztreonam 1 GM in NS 0.9% 50 ML 50 ML IV SCH (15:27)
[2022-11-24] MEDS: Chlorhexidine MOUTHWASH 0.12% 15 ML UDC TOPICAL SCH ×3 (16:25→22:35)
[2022-11-24] MEDS: Norepinephrine 16MCG/ML BAGD5W 4,000 MCG/250 ML BAG IV SCH (22:45)
[2022-11-25] MEDS: Pantoprazole VIAL 40 MG VIAL IV SCH ×2 (00:42→14:07)
[2022-11-25] MEDS: Dexmedetomidine 1,000 MCG in NS 0.9% 250 ml 240 ML IV SCH (00:50)
[2022-11-25] MEDS: Chlorhexidine MOUTHWASH 0.12% 15 ML UDC TOPICAL SCH ×4 (05:14→14:54)
[2022-11-25 05:29] LABS: ABS Lymphocytes 0.9 10^3/ul (1.0-4.8); ABS Monocytes 0.5 10^3/ul (0-0.8); ABS Neutrophils 16.6 10^3/ul (1.5-7.7); Hematocrit 25 % (42-52); Hemoglobin 8.2 g/dL (14.0-18.0); Lymphocyte % 4.9 %; Mean Corpuscular Hemoglobin 34 pg (27-31); Mean Corpuscular Hgb Conc 33 g/dL (31-36); Mean Corpuscular Volume 102 fL (80-94); Mean Platelet Volume 8.5 fL (7.4-10.4); Nucleated Red Blood Cells % 0.1; Platelet Count 664 10^3/uL (150-450); Red Blood Count 2.44 10^6 /uL (4.18-5.48); Red Cell Distribution Width 14 % (10-15)
[2022-11-25] MEDS: Heparin 5000 UNITS/ML 1 mL VIAL SUBCUT SCH ×2 (05:43→14:08)
[2022-11-25] MEDS: Propofol 10 mg/ml 100 ML BTL 1,000 MG/100 ML BTL IV SCH ×4 (06:02→19:35)
[2022-11-25 06:15] LABS: Calcium 8.1 mg/dL (8.6-10.3); Magnesium 1.9 mg/dL (1.9-2.7)
[2022-11-25 06:21] LABS: Creatinine, Serum 3.83 mg/dL (0.67-1.17); Potassium 5.2 mmol/L (3.5-5.0); eGFR CKD-EPI 17.1 (>60)
[2022-11-25] MEDS: Heparin 1,000 UNIT/ML 10 ml (10,000 UNITS) CATHLAB/DIALYSIS DIALYSIS PRN ×7 (08:48→14:54)
[2022-11-25] MEDS: ceFAZolin 1 GM in Dextrose 1 GM/50 ML BAG IVPB SCH (09:05)
[2022-11-25] MEDS: Multivitamins ADULT w/MIN LIQ 15 ML UDC PO SCH (09:08)
[2022-11-25] MEDS: Norepinephrine 16MCG/ML BAGD5W 4,000 MCG/250 ML BAG IV SCH (11:14)
[2022-11-25] MEDS: Thiamine 100 MG/ML 2 ml VIAL 100 MG in NS 0.9% 50 ML 50 ML IV SCH (11:16)
[2022-11-25] MEDS ORDERED: Fluconazole 400 MG IVPREMIX 400 MG/200 ML BAG IVPB ONE (11:30)
[2022-11-25] MEDS ORDERED: Chlorhexidine MOUTHWASH 0.12% 15 ML UDC TOPICAL SCH (18:00)
[2022-11-25] MEDS ORDERED: Lorazepam PYXIS KEY PRN (18:51)
[2022-11-25] MEDS ORDERED: LORazepam 2 mg VIAL 1 ml IV PUSH ONE (18:51)
[2022-11-25] MEDS ORDERED: Lorazepam PYXIS KEY ONE (19:37)
[2022-11-25 20:46] VITALS: BP 115/74
[2022-11-26] MEDS ORDERED: Fluconazole 200 MG IVPREMIX 200 MG/100 ML BAG IVPB SCH (11:00)
== END 2022-11-25 20:22 | disposition short-term general hospital (02) | DRG 775 ==
LOC: ICU 10:31
PROVIDERS: ADMIT Surgery Surgical Critical Care; ATTEND Internal Medicine Critical Care Medicine